=== PATIENT | female | born 1960 | race Caucasian/White ===

== ENCOUNTER → 2024-06-25 | Outpatient (CLI) | payer MEDICARE, OTHER ==
[~2024-06-25] MED LIST: ALBU90OI61 INH; Adult Low Dose81 MG PO; FLONASE ALLERG9.9 ML; HYDHCL25 PO; IBUP800 PO; Nexium40 MG PO; Prinivil10 MG PO; Prozac20 MG PO; SIMV40 PO; ZYRTEC10 M2 PO
[2024-07-09 15:08] LABS: Stool Occult Bld Immuno 1 Positive (NEGATIVE)
== END | disposition home or self-care (01) ==
LOC: LAB 12:00 → LAB SHORT 12:00
PROVIDERS: Internal Medicine
DX: Z12.11 Encounter for screening for malignant neoplasm of colon (principal)
CPT/HCPCS: G0328